=== PATIENT | male | born 1990 | race Caucasian/White ===

== ENCOUNTER 2020-01-01 20:17 | Emergency (ER) | payer MEDICAID ==
[~2020-01-01] VITALS: Ht 177.8 cm; Wt 77.1 kg
--- NOTE | 2020-01-01 21:07 | NUR ---
BIBS TO ER BED 12. AAOX4. NOT IN RESP DISTRESS, BREATHING EVEN AND UNLABORED. AMBULATORY. CAME IN FOR BILAT FOOT PAIN AND SOB. NOTED R FOOT MEDIAL ASPECT SWELLING AND REDNESS, TENDER TO TOUCH. PT STATES HE IS SOB INTERMITENTLY AND FEELS NOT GETTING ENOUGH AIR DURING THE EPISODES. NOTED 97% ON RA. MAXWELL SHIPLEY AT BEDSIDE FOR EVAL. AWAITING ORDERS
[2020-01-01] MEDS ORDERED: oxyCODONE IR immediate release 5 MG PO STA (21:11)
[2020-01-01] MEDS ORDERED: oxyCODONE/APAP (5/325 MG) 1 UDTAB TABLET ONE (21:15)
[2020-01-01] MEDS ORDERED: CEPHALEXIN MONOHYDRATE 500 MG CAPSULE PO ONE ×2 (21:16→21:30)
[2020-01-01] MEDS ORDERED: IBUPROFEN 600 MG TABLET PO ONE ×2 (21:16→21:30)
[2020-01-01] MEDS ORDERED: SULFAMETH/TRIMETH 800/160 MG 1 UDTAB TABLET ONE (21:16)
[2020-01-01] MEDS ORDERED: SULFAMETH/TRIMETH 800/160 MG 1 UDTAB TABLET PO ONE (21:30)
[2020-01-01] MEDS ORDERED: oxyCODONE/APAP (5/325 MG) 1 UDTAB TABLET PO ONE ×2 (21:30)
[2020-01-01] MEDS ORDERED: LORAZEPAM 1 MG TABLET PO ONE (22:00)
[2020-01-01] MEDS ORDERED: LORAZEPAM 1 MG TABLET ONE (22:07)
--- NOTE | 2020-01-02 00:23 | NUR ---
PT IN BED SLEEPING COMFORTABLY.
--- NOTE | 2020-01-02 03:14 | NUR ---
PATIENT IS PLEASANT AND AWAKE. PATIENT IS EATING HIS SANDWICH. AAOX4. NO SOB. BREATHING EVENLY AND UNLABORED ON ROOM AIR. CONNECTED TO MONITOR. WILL CONTINUE TO MONITOR.
--- NOTE | 2020-01-02 06:15 | NUR ---
PATIENT IS SLEEPING. EASILY AROUSABLE THROUGH TACTILE AND VERBAL STIMULI. BREATHING EVENLY AND UNLABORED ON ROOM AIR. CONNECTED TO THE MONITOR. SITTER IS AT BEDSIDE.
--- NOTE | 2020-01-02 08:39 | NUR ---
aram brady callled for placement/assistance
[2020-01-02] MEDS ORDERED: SULFAMETH/TRIMETH 800/160 MG 1 UDTAB TABLET PO ONE (09:00)
[2020-01-02] MEDS ORDERED: AMOX/CLAVULANATE 875 MG TABLET PO ONE (09:00)
[2020-01-02] MEDS ORDERED: SULFAMETH/TRIMETH 800/160 MG 1 UDTAB TABLET ONE (09:23)
[2020-01-02] MEDS ORDERED: AMOX/CLAVULANATE 875 MG TABLET ONE (09:23)
--- NOTE | 2020-01-02 09:45 | NUR ---
HOSTEL PARENT received a call from ER BRAYDON Hannon in regards to finding placement through [facility] due to pt is PUI for COVID-19. HOSTEL PARENT contacted [facility] quarantine and isolation intake call center . HOSTEL PARENT spoke with Anusha and informed her to have DP nursing supervisor small appliance assembly to call back ER and speak with BRAYDON Hannon or Sunil for more detailed information regarding the pt. Per Anusha, DP will follow up with BRAYDON Hannon/Sunil. Ticket number [phone]. HOSTEL PARENT updated BRAYDON Barber in ED with aforementioned information. [employer] is available for support as needed.
--- NOTE | 2020-01-02 09:59 | NUR ---
AMBULATED OUTSIDE FOR A SMOKE WITHOUT PERMISSION.
--- NOTE | 2020-01-02 11:13 | NUR ---
ED BRAYDON Barber informed [employer]NSITE HE[employer] COACH clinicals needs to be sent via email to [email or web address]. ONSITE HEALTH COACH sent clinicals via email to [email or web address] and informed to f/u with ED BRAYDON Hannon or BRAYDON Barber.
--- NOTE | 2020-01-02 11:32 | NUR ---
CAMPGROUND CLEANING ATTENDANT was informed by Andrew in ED, pt is going to stay at a friend's place an does not need placement any longer.
--- NOTE | 2020-01-02 12:03 | NUR ---
Patient discharged to home in stable condition. Written and verbal after care instructions given. Patient verbalizes understanding of instruction. Pt ambulatory with a steady gait. Homeless waiver signed by the pt
[2020-01-02 12:04] VITALS: BP 117/70
== END 2020-01-02 12:05 | disposition home or self-care (01) ==
LOC: ER 20:17
DX: L03.115 Cellulitis of right lower limb (principal); L03.114 Cellulitis of left upper limb; F41.9 Anxiety disorder, unspecified; F11.23 Opioid dependence with withdrawal; R91.8 Other nonspecific abnormal finding of lung field; S91.031A Puncture wound without foreign body, right ankle, initial encounter; S51.832A Puncture wound without foreign body of left forearm, initial encounter; X78.8XXA Intentional self-harm by other sharp object, initial encounter; Y93.89 Activity, other specified; Y99.8 Other external cause status; Z20.828 Contact with and (suspected) exposure to other viral communicable diseases; Z59.0 Homelessness; Z82.49 Family history of ischemic heart disease and other diseases of the circulatory system; R06.02 Shortness of breath
CPT/HCPCS: 71045; 93005; 99285; U0003; C9803-CS